=== PATIENT | male | born 2000 | race Caucasian/White ===

== ENCOUNTER 2018-11-06 15:34 | Emergency (ER) | payer BC ==
[~2018-11-06] VITALS: Ht 185.4 cm; Wt 56.4 kg
[2018-11-06 15:36] VITALS: BP 133/71; TEMP 97.8
[2018-11-06 16:42] VITALS: PULSE 75
== END 2018-11-06 16:43 | disposition home or self-care (01) ==
LOC: COL.ER 15:34
DX: S62.611A Displaced fracture of proximal phalanx of left index finger, initial encounter for closed fracture (principal); W23.0XXA Caught, crushed, jammed, or pinched between moving objects, initial encounter